=== PATIENT | female | born 1980 | race Hispanic/Latino ===

== ENCOUNTER 2019-12-26 19:24 | Emergency (ER) | payer OTHER ==
[~2019-12-26] VITALS: Ht 157.5 cm; Wt 81.6 kg
[2019-12-26] MEDS ORDERED: SODIUM CHLORIDE 0.9% 1000ML 1,000 ML IV STA (20:14)
[2019-12-26] MEDS ORDERED: LORAZEPAM INJ 2 MG/ML VIAL IV ONE (20:15)
[2019-12-26 20:43] LABS: BASOPHILS # (AUTO) 0.1 (0.0-0.1); BASOPHILS % 0.7 % (0.0-1.0); EOSINOPHILS % 0.1 % (0.0-6.0); HEMATOCRIT 41.6 % (34.2-44.1); HEMOGLOBIN 13.6 g/dL (12.0-16.0); LYMPHOCYTES # (AUTO) 1.9 (1.0-3.2); LYMPHOCYTES % 24.5 % (18.0-39.1); MEAN CORPUSCULAR HEMOGLOBIN 29.2 pg (28-32); MEAN CORPUSCULAR HGB CONC 32.7 g/dL (31-35); MEAN CORPUSCULAR VOLUME 89.5 fL (81-99); MONOCYTES # (AUTO) 0.6 (0.2-0.8); MONOCYTES % 7.3 % (4.4-11.3); NEUTROPHILS # (AUTO) 5.1 (2.1-6.9); NEUTROPHILS % 67.1 % (38.7-80.0); PLATELET COUNT 238 x10e3/uL (140-360); RED BLOOD COUNT 4.65 x10e6/uL (3.6-5.1); RED CELL DISTRIBUTION WIDTH 12.5 % (11.7-14.4)
[2019-12-26 20:55] LABS: ALANINE AMINOTRANSFERASE 16 IU/L (0-55); ALBUMIN 4.2 g/dL (3.5-5.0); ALBUMIN/GLOBULIN RATIO 1.1 (0.8-2.0); ALKALINE PHOSPHATASE 76 IU/L (40-150); ANION GAP 12.8 mmol/L (8-16); BLOOD UREA NITROGEN 13 mg/dL (7-26); BUN/CREATININE RATIO 15 (6-25); CALCIUM 9.1 mg/dL (8.4-10.2); CARBON DIOXIDE 22 mmol/L (22-29); CHLORIDE 110 mmol/L (98-107); CREATINE KINASE 146 IU/L (29-168); CREATININE, SERUM 0.87 mg/dL (0.57-1.11); EST GLOMERULAR FILTRATION RATE > 60 ML/MIN (60-); GLUCOSE 104 mg/dL (74-118); POTASSIUM 3.8 mmol/L (3.5-5.1); SODIUM 141 mmol/L (136-145)
[2019-12-27 00:55] VITALS: BP 124/84
[2019-12-27] MEDS ORDERED: VALIUM2 MG PO (01:03)
== END 2019-12-27 01:08 | disposition home or self-care (01) ==
LOC: ER 19:39
DX: F41.9 Anxiety disorder, unspecified (principal); F32.9 Major depressive disorder, single episode, unspecified; Z87.19 Personal history of other diseases of the digestive system
CPT/HCPCS: 36415; 70450; 80053; 82550; 82553; 84484; 85025; 99283; J2060; J7030

== ENCOUNTER 2020-03-18 13:24 | Emergency (ER) | payer OTHER ==
[~2020-03-18] VITALS: Ht 157.5 cm; Wt 81.6 kg
[~2020-03-18 13:24] MED LIST: VALIUM2 MG PO
== END 2020-03-18 13:50 | disposition home or self-care (01) ==
LOC: ER 13:40
DX: L03.116 Cellulitis of left lower limb (principal); F41.9 Anxiety disorder, unspecified; K58.9 Irritable bowel syndrome, unspecified
CPT/HCPCS: 99283

== ENCOUNTER 2021-02-23 00:53 | Emergency (ER) | payer OTHER ==
[~2021-02-23] VITALS: Ht 157.5 cm; Wt 81.6 kg
== END 2021-02-23 02:31 | disposition home or self-care (01) ==
LOC: ER 00:57
DX: R50.9 Fever, unspecified (principal); J40 Bronchitis, not specified as acute or chronic; R05.9 Cough, unspecified; F41.9 Anxiety disorder, unspecified; Z20.822 Contact with and (suspected) exposure to COVID-19
CPT/HCPCS: 71045; 99284; U0002

== ENCOUNTER 2021-03-02 13:21 | Emergency (ER) | payer OTHER ==
[~2021-03-02] VITALS: Ht 157.5 cm; Wt 81.6 kg
[2021-03-02] MEDS ORDERED: SODIUM CHLORIDE 0.9% 1000ML 1,000 ML IV STA (13:39)
[2021-03-02 14:33] LABS: BASOPHILS # (AUTO) 0.1 (0.0-0.1); BASOPHILS % 0.6 % (0.0-1.0); EOSINOPHILS # (AUTO) 1.8 (0.0-0.4); EOSINOPHILS % 18.9 % (0.0-6.0); HEMATOCRIT 45.9 % (34.2-44.1); HEMOGLOBIN 14.5 g/dL (12.0-16.0); LYMPHOCYTES # (AUTO) 2.6 (1.0-3.2); LYMPHOCYTES % 27.7 % (18.0-39.1); MEAN CORPUSCULAR HGB CONC 31.6 g/dL (31-35); MEAN CORPUSCULAR VOLUME 91.8 fL (81-99); MONOCYTES # (AUTO) 0.7 (0.2-0.8); MONOCYTES % 7.2 % (4.4-11.3); NEUTROPHILS # (AUTO) 4.2 (2.1-6.9); NEUTROPHILS % 44.8 % (38.7-80.0); PLATELET COUNT 248 x10e3/uL (140-360); RED CELL DISTRIBUTION WIDTH 12.9 % (11.7-14.4)
[2021-03-02 14:45] LABS: INR 0.95; PROTHROMBIN TIME 13.3 seconds (11.9-14.5)
[2021-03-02 14:54] LABS: ALBUMIN 3.6 g/dL (3.5-5.0); ALBUMIN/GLOBULIN RATIO 0.9 (0.8-2.0); ANION GAP 9.1 mmol/L (8-16); CALCIUM 8.9 mg/dL (8.4-10.2); CREATININE, SERUM 0.79 mg/dL (0.57-1.11); POTASSIUM 3.1 mmol/L (3.5-5.1)
[2021-03-02] MEDS ORDERED: POTASSIUM CHLORIDE 20 MEQ TAB CR PO STA (16:02)
[2021-03-02] MEDS ORDERED: SODIUM CHLORIDE 0.9% 50ML 50 ML ONE (17:02)
[2021-03-02] MEDS ORDERED: IOPAMIDOL 370 MG/ML 200 ML INFUS..BTL INJ ONE (17:02)
== END 2021-03-02 16:27 | disposition home or self-care (01) ==
LOC: ER 13:40
DX: U07.1 COVID-19 (principal); R06.00 Dyspnea, unspecified; R05.9 Cough, unspecified; J45.909 Unspecified asthma, uncomplicated; F41.9 Anxiety disorder, unspecified; F17.210 Nicotine dependence, cigarettes, uncomplicated
CPT/HCPCS: 36415; 71260; 80053; 84702; 85025; 85610; 85730; 93005; 99284; J7030; Q9967

== ENCOUNTER 2021-10-27 18:15 | Emergency (ER) | payer OTHER ==
[~2021-10-27] VITALS: Ht 157.5 cm; Wt 81.6 kg
[~2021-10-27 18:15] MED LIST changes: +ALBUTEROL0.63 MG/3 NEB; +ALLEGRA-D 24 H1 EACH PO; +COMPACT COMPRE1 EACH; +DICYCLOMINE HCL20 MG PO; +LEVOTHYROXINE25 MC1 PO; +MESALAMINE1.2 GM PO; +METOPROLOL TART25 MG PO; +NURTEC ODT75 MG PO; +OMEPRAZOLE40 MG PO; +PREDNISONE20 MG PO; +PROVENTIL HFA6.7 GM INH; +TOPIRAMATE100 MG PO; +TRELEGY ELLIPT1 EAC1 INH
[2021-10-27] MEDS ORDERED: SODIUM CHLORIDE 0.9% 1000ML 1,000 ML IV ONE (18:45)
[2021-10-27] MEDS ORDERED: Morphine 4mg INJECTION 4 MG/ML INJ IV PRN (18:45)
[2021-10-27] MEDS ORDERED: ONDANSETRON HCL INJ 2MG/ML 2ML 2 MG/ML VIAL IV PRN (18:45)
[2021-10-27 19:02] LABS: BASOPHILS % 0.1 % (0.0-1.0); HEMATOCRIT 43.1 % (34.2-44.1); HEMOGLOBIN 14.4 g/dL (12.0-16.0); LYMPHOCYTES # (AUTO) 3.1 (1.0-3.2); LYMPHOCYTES % 34.7 % (18.0-39.1); MEAN CORPUSCULAR HEMOGLOBIN 29.4 pg (28-32); MEAN CORPUSCULAR HGB CONC 33.4 g/dL (31-35); MEAN CORPUSCULAR VOLUME 88.1 fL (81-99); MONOCYTES # (AUTO) 0.6 (0.2-0.8); NEUTROPHILS # (AUTO) 5.1 (2.1-6.9); NEUTROPHILS % 57.6 % (38.7-80.0); PLATELET COUNT 235 x10e3/uL (140-360); RED BLOOD COUNT 4.89 x10e6/uL (3.6-5.1); RED CELL DISTRIBUTION WIDTH 12.7 % (11.7-14.4)
[2021-10-27 19:22] LABS: ALBUMIN 3.8 g/dL (3.5-5.0); CALCIUM 8.7 mg/dL (8.4-10.2); CREATININE, SERUM 0.94 mg/dL (0.57-1.11)
[2021-10-27] MEDS ORDERED: IOPAMIDOL 370 MG/ML 100 ML INFUS..BTL INJ ONE (19:51)
[2021-10-27 19:59] LABS: CLARITY,URINE SL CLOUDY (CLEAR); COLOR,URINE YELLOW (YELLOW); KETONES,URINE NEGATIVE (NEGATIVE); LEUKOCYTE ESTERASE ,URINE NEGATIVE (NEGATIVE); NITRITE,URINE NEGATIVE (NEGATIVE); PROTEIN,URINE DIPSTICK NEGATIVE (NEGATIVE); URINE UROBILINOGEN 0.2 mg/dL (0.2 - 1)
[2021-10-27 20:10] LABS: BACTERIA,URINE MODERATE /HPF; EPITHELIAL CELLS,URINE MODERATE /LPF; RBC,URINE 0-5 /HPF (0-5); WBC,URINE (MAN) 0-5 /HPF (0-5)
[2021-10-27] MEDS ORDERED: LIDOCAINE1 EAC1 EXT (21:41)
[2021-10-27] MEDS ORDERED: METHOCARBAMOL500 MG PO (21:41)
[2021-10-27 21:57] VITALS: BP 130/78
== END 2021-10-27 22:03 | disposition home or self-care (01) ==
LOC: ER 18:25
DX: R10.13 Epigastric pain (principal); M54.50 Low back pain, unspecified; F41.9 Anxiety disorder, unspecified; Z86.73 Personal history of transient ischemic attack (TIA), and cerebral infarction without residual deficits
CPT/HCPCS: 36415; 74177; 80053; 81001; 83690; 85025; 87086; 99284; J2270; J2405; J7030; Q9967

== ENCOUNTER 2022-12-09 14:10 | Emergency (ER) | payer OTHER ==
[~2022-12-09] VITALS: Ht 157.5 cm; Wt 81.6 kg
[~2022-12-09 14:10] MED LIST changes: +FIORICET 50-301 EACH PO; +LIDOCAINE1 EAC1 EXT; +METHOCARBAMOL500 MG PO; +PREDNISONE50 MG PO
[2022-12-09] MEDS ORDERED: ONDANSETRON HCL INJ 2MG/ML 2ML 2 MG/ML VIAL IV STA (14:34)
[2022-12-09] MEDS ORDERED: SODIUM CHLORIDE 0.9% 1000ML 1,000 ML ONE (14:37)
[2022-12-09] MEDS ORDERED: ONDANSETRON HCL INJ 2MG/ML 2ML 2 MG/ML VIAL ONE (14:37)
[2022-12-09] MEDS ORDERED: SODIUM CHLORIDE 0.9% 1000ML 1,000 ML IV ONE (14:45)
[2022-12-09 14:52] LABS: BASOPHILS % 0.5 % (0.0-1.0); HEMATOCRIT 42.8 % (34.2-44.1); HEMOGLOBIN 15.3 g/dL (12.0-16.0); LYMPHOCYTES # (AUTO) 1.4 (1.0-3.2); LYMPHOCYTES % 37.2 % (18.0-39.1); MEAN CORPUSCULAR HEMOGLOBIN 29.4 pg (28-32); MEAN CORPUSCULAR HGB CONC 35.7 g/dL (31-35); MEAN CORPUSCULAR VOLUME 82.3 fL (81-99); MONOCYTES # (AUTO) 0.5 (0.2-0.8); MONOCYTES % 12.4 % (4.4-11.3); NEUTROPHILS # (AUTO) 1.9 (2.1-6.9); NEUTROPHILS % 48.6 % (38.7-80.0); PLATELET COUNT 153 x10e3/uL (140-360); RED CELL DISTRIBUTION WIDTH 13.3 % (11.7-14.4); WHITE BLOOD COUNT 3.87 x10e3/uL (4.8-10.8)
[2022-12-09 15:16] LABS: ALBUMIN/GLOBULIN RATIO 1.1 (0.8-2.0); ANION GAP 14.4 mmol/L (8-16); CALCIUM 8.4 mg/dL (8.4-10.2); CREATININE, SERUM 1.01 mg/dL (0.57-1.11); POTASSIUM 3.4 mmol/L (3.5-5.1)
[2022-12-09] MEDS ORDERED: ONDANSETRON ODT4 MG PO (16:56)
[2022-12-09 17:39] VITALS: BP 131/75; PULSE 90; RESP 18; O2SAT 99
== END 2022-12-09 17:40 | disposition home or self-care (01) ==
LOC: ER 14:35
DX: R50.9 Fever, unspecified (principal); R11.2 Nausea with vomiting, unspecified; R19.7 Diarrhea, unspecified; J45.909 Unspecified asthma, uncomplicated; F41.9 Anxiety disorder, unspecified; Z20.822 Contact with and (suspected) exposure to COVID-19; Z86.73 Personal history of transient ischemic attack (TIA), and cerebral infarction without residual deficits
CPT/HCPCS: 36415; 80053; 85025; 87400; 99284; J2405; J7030; U0002

== ENCOUNTER 2024-04-07 17:31 | Emergency (ER) | payer OTHER ==
[~2024-04-07] VITALS: Ht 157.5 cm; Wt 87.5 kg
[~2024-04-07 17:31] MED LIST changes: +DEXAMETHASONE4 MG PO; +MUCINEX DM ER1 EAC1 PO; +ONDANSETRON ODT4 MG PO; +ONDANSETRON ODT4 MG SL
[2024-04-07 18:07] VITALS: PULSE 73; RESP 18; TEMP 98.6; O2SAT 100
== END 2024-04-07 19:30 | disposition left against medical advice (07) ==
LOC: ER 18:00
DX: M79.602 Pain in left arm (principal)

== ENCOUNTER 2024-11-27 11:51 | Emergency (ER) | payer OTHER ==
[~2024-11-27] VITALS: Ht 157.5 cm; Wt 79.4 kg
[2024-11-27 11:51] VITALS: PULSE 84; RESP 20; TEMP 98.2
[2024-11-27] MEDS ORDERED: CARBAMAZEPINE200 MG PO (12:08)
[2024-11-27 13:09] LABS: BASOPHILS % 0.4 % (0.0-1.0); EOSINOPHILS % 0.0 % (0.0-6.0); LYMPHOCYTES % 21.8 % (18.0-39.1); MONOCYTES % 4.2 % (4.4-11.3); NEUTROPHILS % 73.2 % (38.7-80.0); RED CELL DISTRIBUTION WIDTH 12.2 % (11.7-14.4)
[2024-11-27] MEDS: SODIUM CHLORIDE 0.9% 1000ML 1,000 ML IV ONE (13:13)
[2024-11-27 13:35] LABS: EST GLOMERULAR FILTRATION RATE 81.0 ML/MIN (>=60)
[2024-11-27 14:28] VITALS: BP 116/67; PULSE 85; RESP 20; O2SAT 100
== END 2024-11-27 14:30 | disposition home or self-care (01) ==
LOC: ER 12:05
DX: R60.9 Edema, unspecified (principal); R20.2 Paresthesia of skin; T78.40XA Allergy, unspecified, initial encounter; I10 Essential (primary) hypertension; J45.909 Unspecified asthma, uncomplicated; F41.9 Anxiety disorder, unspecified; F32.A Depression, unspecified; M79.7 Fibromyalgia; Z86.73 Personal history of transient ischemic attack (TIA), and cerebral infarction without residual deficits; Z87.19 Personal history of other diseases of the digestive system
CPT/HCPCS: 36415; 70450; 80053; 80156; 85025; 99283; J7030